=== PATIENT | female | born 1930 | race Caucasian/White ===

== ENCOUNTER 2020-09-20 08:41 | Inpatient (IN) | payer MEDICARE, OTHER ==
[~2020-09-20] VITALS: Ht 167.6 cm; Wt 54.5 kg
[2020-09-20] MEDS ORDERED: WARF1TAB2 PO (08:56)
[2020-09-20] MEDS ORDERED: TRIA1CAP6 PO (08:56)
[2020-09-20] MEDS ORDERED: DULO20CA PO (08:56)
[2020-09-20] MEDS ORDERED: FLUTICASONE (08:56)
[2020-09-20] MEDS ORDERED: BENA20TA9 PO (08:56)
[2020-09-20] MEDS ORDERED: DIGO125T PO (08:56)
[2020-09-20] MEDS ORDERED: PROP10TA10 PO (08:56)
[2020-09-20] MEDS ORDERED: SIMV-46 PO (08:56)
[2020-09-20] MEDS ORDERED: ATROVENT (08:56)
[2020-09-20] MEDS ORDERED: PULMICORT (08:56)
[2020-09-20] MEDS ORDERED: KLOR-CON (08:56)
[2020-09-20] MEDS ORDERED: TIOT18CA3 IH (08:56)
[2020-09-20] MEDS ORDERED: NITROGLYCERIN OINT 1 GM PACKET TP ONE ×2 (09:00→09:16)
[2020-09-20] MEDS ORDERED: METOPROLOL TARTRATE 5 MG/5 ML VIAL IVP ONE ×2 (09:00→09:16)
[2020-09-20 09:32] LABS: BASOPHILS % (AUTO) 0.4 % (0.0-2.0); EOSINOPHILS # (AUTO) 0.1 K/uL (0.0-0.7); HEMATOCRIT 36.3 % (31.2-41.9); HEMOGLOBIN 12.1 g/dL (10.9-14.3); LYMPHOCYTES # (AUTO) 0.4 K/uL (20.0-40.0); LYMPHOCYTES % (AUTO) 4.9 % (20.5-51.5); MEAN CORPUSCULAR HGB CONC 33 g/dL (32.3-35.6); MONOCYTES # (AUTO) 1.2 K/uL (2.0-10.0); MONOCYTES % (AUTO) 13.9 % (0.0-11.0); NEUTROPHILS # (AUTO) 6.8 K/uL (1.8-8.9); NEUTROPHILS % (AUTO) 79.8 % (38.5-71.5); PLATELET COUNT (AUTO) 140 K/uL (179-408); RED BLOOD CELL COUNT(AUTO) 3.78 MIL/uL (3.63-4.92); WHITE BLOOD COUNT (AUTO) 8.5 K/uL (3.8-11.8)
--- NOTE | 2020-09-20 09:43 | NUR ---
Patient is talking animatedly with her 2 caregivers, pending results and disposition, her respiration is easy but c/o shortness of breath with mild chest pains with inspiration
[2020-09-20 09:55] LABS: BILIRUBIN,DIRECT 0.3 mg/dL (0.0-0.2); BILIRUBIN,TOTAL 1.1 mg/dL (0.2-1.0); TOTAL PROTEIN, SERUM 6.4 g/dL (6.4-8.2)
[2020-09-20] MEDS ORDERED: MORPHINE SULFATE 2 MG/1 ML DISP.SYRIN IV PRN (10:45)
[2020-09-20] MEDS ORDERED: NITROGLYCERIN 0.4 MG/TAB BOTTLE SL PRN (10:45)
[2020-09-20] MEDS ORDERED: FUROSEMIDE 20 MG/2 ML VIAL IV SCH (10:45)
[2020-09-20] MEDS ORDERED: ONDANSETRON 4 MG/2 ML VIAL IV PRN (10:45)
--- NOTE | 2020-09-20 10:51 | NUR ---
Dr Braswell came & evaluated the patient in ER, pending admitting papers@the moment.
[2020-09-20] MEDS ORDERED: FUROSEMIDE 20 MG/2 ML VIAL ONE (11:20)
--- NOTE | 2020-09-20 11:59 | NUR ---
Afetr echocardiogram, patient voided to bathroom, ambulated with one-person assist.
--- NOTE | 2020-09-20 12:00 | NUR ---
ADMITTED VIA [facility]. ALERT & ORIENTED X3. WINNEBAGO EDITH. EARS. DAUGHTER & CAREGIVERS AT BEDSIDE.
[2020-09-20 12:49] VITALS: BP 121/56
[2020-09-20] MEDS ORDERED: WARF-68 PO (12:49)
[2020-09-20 15:11] VITALS: BP 130/53
[2020-09-20] MEDS: WARFARIN SODIUM 1 MG TABLET PO SCH (17:40)
[2020-09-20] MEDS: PROPRANOLOL HCL 10 MG TABLET PO SCH (19:46)
[2020-09-20] MEDS: SIMVASTATIN 20 MG TABLET PO SCH (19:46)
--- NOTE | 2020-09-20 20:00 | NUR ---
RECD PT IN BED,ALERT ,ORIENTED,ABLE TO MAKE NEEDS KNOWN,FORGETFULAT TIMES.NO ACUTE DISTRESS NOTED.O N TELE,[id number],FREQUENT PVC, AND OCCASIONAL PACED BEATS.DUE MEDS GIVEN,VOIDED FREELY WELL;
[2020-09-20 20:15] VITALS: BP 119/75
--- NOTE | 2020-09-21 | NUR ---
NO COMPLAINTS OF PAIN PRESENTED.KEPT WARM AND COMFORTABLE.ROLL ON MAN AT BEDSIDE.
[2020-09-21 01:00] VITALS: BP 107/47
[2020-09-21 04:15] VITALS: BP 118/64
[2020-09-21 06:40] LABS: BASOPHILS % (AUTO) 0.3 % (0.0-2.0); EOSINOPHILS # (AUTO) 0.1 K/uL (0.0-0.7); EOSINOPHILS % (AUTO) 1.9 % (0.0-7.0); HEMATOCRIT 34.1 % (31.2-41.9); HEMOGLOBIN 11.5 g/dL (10.9-14.3); LYMPHOCYTES # (AUTO) 0.6 K/uL (20.0-40.0); LYMPHOCYTES % (AUTO) 8.8 % (20.5-51.5); MEAN CORPUSCULAR HEMOGLOBIN 32.4 uug (24.7-32.8); MEAN CORPUSCULAR HGB CONC 34 g/dL (32.3-35.6); MEAN CORPUSCULAR VOLUME 96.1 fL (75.5-95.3); MONOCYTES # (AUTO) 1.1 K/uL (2.0-10.0); MONOCYTES % (AUTO) 16.8 % (0.0-11.0); NEUTROPHILS # (AUTO) 4.5 K/uL (1.8-8.9); NEUTROPHILS % (AUTO) 72.2 % (38.5-71.5); PLATELET COUNT (AUTO) 144 K/uL (179-408); RED BLOOD CELL COUNT(AUTO) 3.55 MIL/uL (3.63-4.92); WHITE BLOOD COUNT (AUTO) 6.3 K/uL (3.8-11.8)
[2020-09-21 06:59] LABS: CREATININE 0.9 mg/dL (0.6-1.3); MAGNESIUM 1.9 mg/dL (1.8-2.4); PHOSPHOROUS 3.1 mg/dL (2.5-4.9); POTASSIUM 3.8 mmol/L (3.5-5.1)
--- NOTE | 2020-09-21 07:48 | NUR ---
UNEVENTFUL NITE.ENDORSED TO AM SHIFT NURSE IN FAIR CONDITION.
[2020-09-21] MEDS ORDERED: BENAZEPRIL HCL 20 MG TABLET PO SCH (09:00)
[2020-09-21 09:11] LABS: EOSINOPHILS % (MANUAL) 1 % (0-8); LYMPHOCYTES % (MANUAL) 11 % (20-40); MONOCYTES % (MANUAL) 11 % (2-10); NEUTROPHILS % (MANUAL) 77 % (42-75)
[2020-09-21] MEDS: DULOXETINE 20 MG CAPSULE.DR PO SCH (09:11)
[2020-09-21] MEDS: FUROSEMIDE 20 MG/2 ML VIAL IV SCH ×2 (09:11→17:26)
[2020-09-21] MEDS: BENAZEPRIL HCL 10 MG TABLET PO SCH (09:12)
[2020-09-21] MEDS: PROPRANOLOL HCL 10 MG TABLET PO SCH ×3 (09:21→17:26)
[2020-09-21 11:47] VITALS: BP 123/53
[2020-09-21] MEDS: DIGOXIN 125 MCG TABLET PO SCH (13:38)
[2020-09-21] MEDS ORDERED: IPRA12.9 IH (14:43)
[2020-09-21] MEDS ORDERED: POTA-10 PO (14:47)
[2020-09-21] MEDS ORDERED: FLUT16SP16 NS (14:48)
[2020-09-21] MEDS ORDERED: BUDE180A IH (14:50)
[2020-09-21 15:22] VITALS: BP 121/57
[2020-09-21] MEDS ORDERED: FLUTICASONE PROP NASAL SPRAY 16 GM BOTTLE NS PRN (15:45)
[2020-09-21] MEDS ORDERED: PROPRANOLOL HCL 10 MG TABLET PO SCH (17:00)
--- NOTE | 2020-09-21 17:00 | NUR ---
DOING WELL TODAY. VISITED BY FAMILY. CAREGIVERS AT BEDSIDE ALL DAY.
[2020-09-21] MEDS: WARFARIN SODIUM 1 MG TABLET PO SCH (17:28)
[2020-09-21 20:21] VITALS: BP 128/51
[2020-09-21] MEDS: SIMVASTATIN 20 MG TABLET PO SCH (20:23)
[2020-09-22 04:21] VITALS: BP 117/54
--- NOTE | 2020-09-22 05:31 | NUR ---
Pt slept throughout the night with child care development specialist at bedside. Denies chest pain or SOB. Will titrate O2 to 1L and see how patient tolerates. Safety and comfort provided, call light within reach. No other issues or concerns at this time, will endorse to day shift.
[2020-09-22] MEDS: DULOXETINE 20 MG CAPSULE.DR PO SCH (08:20)
[2020-09-22] MEDS: POTASSIUM CHLORIDE 20 MEQ TAB.PRT.SR PO SCH (08:20)
[2020-09-22] MEDS: BENAZEPRIL HCL 10 MG TABLET PO SCH ×2 (08:20→09:00)
[2020-09-22] MEDS: TRIAMTERENE/HCTZ 75-50 MG TABLET PO SCH ×2 (08:20→09:33)
[2020-09-22] MEDS: PROPRANOLOL HCL 10 MG TABLET PO SCH ×4 (08:20→16:25)
[2020-09-22] MEDS: FUROSEMIDE 20 MG/2 ML VIAL IV SCH (08:22)
[2020-09-22] MEDS ORDERED: POTASSIUM CHLORIDE 20 MEQ PO SCH (09:00)
[2020-09-22] MEDS ORDERED: Medication Not On Formulary EA (Triamterene/Hydrochlorothiazid (Triamterene-Hctz 37.5-25 PO SCH (09:00)
[2020-09-22 11:32] VITALS: BP 124/58
[2020-09-22] MEDS: DIGOXIN 125 MCG TABLET PO SCH (12:05)
[2020-09-22] MEDS ORDERED: WARFARIN SODIUM 2 MG TABLET PO SCH ×2 (15:45→17:00)
[2020-09-22 16:00] VITALS: BP_SYST 104; BP_SYST 125; BP_SYST 90; BP_DIAS 46; BP_DIAS 55; BP_DIAS 56
[2020-09-22] MEDS ORDERED: WARFARIN SODIUM 1 MG TABLET PO ONE (17:00)
[2020-09-22 20:00] VITALS: BP 120/63
[2020-09-22] MEDS: SIMVASTATIN 20 MG TABLET PO SCH (20:57)
[2020-09-23] VITALS (7 sets, daily range): BP systolic 112–128; BP diastolic 42–91
--- NOTE | 2020-09-23 07:22 | NUR ---
RECD PT IN BED,ALERT ,ORIENTED,ABLE TO MAKE NEEDS KNOWN,FORGETFUL TIMES.NO ACUTE DISTRESS NOTED.O N TELE,A FIb 120 call light with in reach private respite care provider at bed side
[2020-09-23] MEDS ORDERED: WARFARIN SODIUM 2 MG TABLET PO ONE (08:15)
[2020-09-23] MEDS: DULOXETINE 20 MG CAPSULE.DR PO SCH (08:36)
[2020-09-23] MEDS: POTASSIUM CHLORIDE 20 MEQ TAB.PRT.SR PO SCH (08:36)
[2020-09-23] MEDS: METOPROLOL TARTRATE 25 MG TABLET PO SCH ×2 (08:44→20:10)
[2020-09-23] MEDS ORDERED: IV NORMAL SALINE 250 ML IV SCH (09:00)
[2020-09-23] MEDS ORDERED: IBUPROFEN 400 MG TABLET PO PRN (12:00)
[2020-09-23] MEDS: DIGOXIN 125 MCG TABLET PO SCH (12:31)
[2020-09-23] MEDS: WARFARIN SODIUM 1 MG TABLET PO SCH (16:19)
[2020-09-23] MEDS: ENSURE ENLIVE (VAN) 240 ML LIQUID PO SCH (17:58)
[2020-09-23] MEDS: SIMVASTATIN 20 MG TABLET PO SCH (20:10)
[2020-09-24 00:10] VITALS: BP 141/69
[2020-09-24 04:10] VITALS: BP 141/69
[2020-09-24 04:25] VITALS: BP 108/46
--- NOTE | 2020-09-24 05:36 | NUR ---
Pt slept throughout the night, 24 hour respiratory care specialist at bedside. Denies SOB or discomfort a this time. Requested morphine at beginning of shift for knee pain, tolerated well. Possible D/C today. No other issues or concerns at this time, will endorse to day shift.
[2020-09-24 06:46] LABS: BASOPHILS % (AUTO) 0.6 % (0.0-2.0); EOSINOPHILS # (AUTO) 0.1 K/uL (0.0-0.7); EOSINOPHILS % (AUTO) 1.8 % (0.0-7.0); HEMATOCRIT 33.4 % (31.2-41.9); HEMOGLOBIN 11.2 g/dL (10.9-14.3); LYMPHOCYTES # (AUTO) 0.8 K/uL (20.0-40.0); LYMPHOCYTES % (AUTO) 11.9 % (20.5-51.5); MEAN CORPUSCULAR HEMOGLOBIN 32.1 uug (24.7-32.8); MEAN CORPUSCULAR HGB CONC 34 g/dL (32.3-35.6); MONOCYTES # (AUTO) 1.3 K/uL (2.0-10.0); MONOCYTES % (AUTO) 18.8 % (0.0-11.0); NEUTROPHILS # (AUTO) 4.5 K/uL (1.8-8.9); NEUTROPHILS % (AUTO) 66.9 % (38.5-71.5); PLATELET COUNT (AUTO) 187 K/uL (179-408); RED BLOOD CELL COUNT(AUTO) 3.48 MIL/uL (3.63-4.92); WHITE BLOOD COUNT (AUTO) 6.7 K/uL (3.8-11.8)
--- NOTE | 2020-09-24 07:00 | NUR ---
received patient in bed sleeping. no signs of any pain, sob or discomfort noted at this time. caregiver at bedside. will continue to monitor.
[2020-09-24 07:22] LABS: MAGNESIUM 1.9 mg/dL (1.8-2.4); PHOSPHOROUS 3.3 mg/dL (2.5-4.9); POTASSIUM 3.9 mmol/L (3.5-5.1)
[2020-09-24 07:35] VITALS: BP 108/45
[2020-09-24] MEDS: DULOXETINE 20 MG CAPSULE.DR PO SCH (08:36)
[2020-09-24] MEDS: POTASSIUM CHLORIDE 20 MEQ TAB.PRT.SR PO SCH (08:36)
[2020-09-24] MEDS: METOPROLOL TARTRATE 25 MG TABLET PO SCH (08:37)
[2020-09-24] MEDS: ENSURE ENLIVE (VAN) 240 ML LIQUID PO SCH (08:38)
[2020-09-24 10:00] VITALS: BP_SYST 109; BP_SYST 115; BP_SYST 98; BP_DIAS 40; BP_DIAS 41; BP_DIAS 52
[2020-09-24] MEDS ORDERED: WARFARIN SODIUM 2 MG TABLET PO ONE (10:00)
[2020-09-24] MEDS ORDERED: POTA10CA43 PO (11:44)
[2020-09-24] MEDS ORDERED: METO25TA6 PO (11:44)
[2020-09-24 11:51] VITALS: BP 115/64
[2020-09-24] MEDS: DIGOXIN 125 MCG TABLET PO SCH (12:33)
[2020-09-24 12:43] LABS: EOSINOPHILS % (MANUAL) 2 % (0-8); LYMPHOCYTES % (MANUAL) 12 % (20-40); MONOCYTES % (MANUAL) 16 % (2-10); NEUTROPHILS % (MANUAL) 70 % (42-75)
--- NOTE | 2020-09-24 12:57 | NUR ---
patient discharge orders carried out, patient in stable condition, patient going home with workforce investment act career manager melinda.
--- NOTE | 2020-09-24 13:50 | NUR ---
patient discharged to home at this time via private care with Isaac freedman.
== END 2020-09-24 13:50 | disposition home or self-care (01) | DRG 280 ==
LOC: ER 08:41 → TELE3 10:57
PROVIDERS: ADMIT Internal Medicine; ATTEND Nurse Practitioner Acute Care
DX: I25.10 Atherosclerotic heart disease of native coronary artery without angina pectoris (principal); I21.4 Non-ST elevation (NSTEMI) myocardial infarction; I50.33 Acute on chronic diastolic (congestive) heart failure; I48.20 Chronic atrial fibrillation, unspecified; D68.59 Other primary thrombophilia; I11.0 Hypertensive heart disease with heart failure; E78.5 Hyperlipidemia, unspecified; E86.0 Dehydration; Z79.01 Long term (current) use of anticoagulants; M17.11 Unilateral primary osteoarthritis, right knee; J44.9 Chronic obstructive pulmonary disease, unspecified; Z95.2 Presence of prosthetic heart valve; H91.90 Unspecified hearing loss, unspecified ear; I35.1 Nonrheumatic aortic (valve) insufficiency; Z20.822 Contact with and (suspected) exposure to COVID-19
CPT/HCPCS: 36415; 70030-TC; 71045; 73562; 83605; 83735; 84100; 85025; 85610; 85730; 87040; 93005; 93307; A4663; G0378; J1940; J3490; J3535; J7050

== ENCOUNTER 2021-08-02 10:01 | Inpatient (IN) | payer MEDICARE ==
[~2021-08-02] VITALS: Ht 162.6 cm; Wt 51.7 kg
[~2021-08-02 10:01] MED LIST: BUDE180A IH; DIGO125T PO; DULO20CA PO; FLUT16SP16 NS; IPRA12.9 IH; METO25TA6 PO; POTA10CA43 PO; SIMV-46 PO; TIOT18CA3 IH; WARF-68 PO; WARF1TAB2 PO
--- NOTE | 2021-08-02 10:04 | NUR ---
PATIENT BROUGHT IN BY RESCUE ALTERED. FAMILY STATES CONCERNED FOR UTI. WAITING IN ROOM 3A. PATIENT WAITING TO BE SEEN BY DOCTOR.
--- NOTE | 2021-08-02 10:20 | NUR ---
PATIENT UNABLE TO ANSWER SOME QUESTIONS DUE TO HARD OF HEARING.
[2021-08-02 10:48] LABS: HEMATOCRIT 38.9 % (31.2-41.9); MEAN CORPUSCULAR HEMOGLOBIN 30.6 uug (24.7-32.8); MEAN CORPUSCULAR VOLUME 92.1 fL (75.5-95.3); PLATELET COUNT (AUTO) 203 K/uL (179-408)
[2021-08-02 10:56] LABS: CARBON DIOXIDE 28 mmol/L (21-32); CHLORIDE 100 mmol/L (98-107); GLUCOSE 172 mg/dL (74-106); POTASSIUM 3.7 mmol/L (3.5-5.1); UREA NITROGEN, BLOOD 20 mg/dL (7-18)
[2021-08-02 11:05] LABS: ALANINE AMINOTRANSFERASE 27 U/L (14-59); ALKALINE PHOSPHATASE 131 U/L (50-136); ASPARTATE AMINOTRANSFERASE 22 U/L (15-37); BILIRUBIN,DIRECT 0.2 mg/dL (0.0-0.2); BILIRUBIN,TOTAL 0.8 mg/dL (0.2-1.0); TOTAL PROTEIN, SERUM 7.3 g/dL (6.4-8.2)
[2021-08-02 11:10] LABS: THYROID STIMULATING HORMONE 2.143 mIU/mL (0.358-3.740)
[2021-08-02 11:11] LABS: *BILIRUBIN,URIN NEGATIVE (NEGATIVE); *BLOOD, URINE TRACE (NEGATIVE); *CLARITY,URINE CLEAR (CLEAR); *COLOR,URINE YELLOW (YELLOW); *KETONES,URINE NEGATIVE (NEGATIVE); *UROBILINOGEN,URINE 0.2 E.U./dl (NORMAL); LEUKOCYTE ESTERASE ,URINE TRACE (NEGATIVE); NITRITE, URINE POSITIVE (NEGATIVE); UGLUCOSE NEGATIVE (NEGATIVE)
--- NOTE | 2021-08-02 11:11 | NUR ---
daughter at bedside.
[2021-08-02] MEDS ORDERED: IV NORMAL SALINE 1000 ML BAG IV ONE (11:15)
[2021-08-02] MEDS ORDERED: ASPIRIN 81 MG TAB.CHEW PO ONE (11:30)
[2021-08-02] MEDS ORDERED: MEROPENEM 500 MG in IV NORMAL SALINE 100 ML IV ONE (11:30)
[2021-08-02] MEDS ORDERED: ASPIRIN 81 MG TAB.CHEW ONE (11:33)
[2021-08-02] MEDS ORDERED: MEROPENEM 500MG/NS 50ML PB ***ER PYXIS ONLY IV ONE (11:33)
--- NOTE | 2021-08-02 12:15 | NUR ---
patient brought in with skin sore at buttocks noted
--- NOTE | 2021-08-02 12:15 | NUR ---
patient had x1 BM and 2nd urinary output
[2021-08-02] MEDS ORDERED: FURO-152 PO (12:29)
[2021-08-02] MEDS ORDERED: WARF-68 PO ×2 (12:29)
[2021-08-02] MEDS ORDERED: BENA20TA9 PO (12:29)
[2021-08-02] MEDS ORDERED: METO50TA16 PO (12:29)
[2021-08-02 12:48] LABS: BACTERIA,URINE FEW /HPF (NONE SEEN); RBC,URINE 0-3 /HPF (0-3); SQUAMOUS EPITHELIAL CELL,UR FEW /HPF (NONE SEEN)
--- NOTE | 2021-08-02 12:57 | NUR ---
critical trop called in by lab informed Dr sanchez. trop level 172
[2021-08-02] MEDS ORDERED: HOME MED MISCELLANEOUS XX SCH ×2 (13:45)
[2021-08-02] MEDS ORDERED: MEROPENEM 500 MG in IV NORMAL SALINE 50 ML IV SCH ×2 (14:00→14:15)
[2021-08-02] MEDS ORDERED: ACETAMINOPHEN 325 MG TABLET PO PRN (14:00)
[2021-08-02] MEDS ORDERED: MORPHINE SULFATE 2 MG/1 ML DISP.SYRIN IV PRN ×2 (14:00→14:15)
[2021-08-02] MEDS ORDERED: ONDANSETRON 4 MG/2 ML VIAL IV PRN ×2 (14:00→14:15)
[2021-08-02] MEDS ORDERED: MAGNESIUM HYDROXIDE 30 ML LIQUID UDC PO PRN (14:00)
[2021-08-02] MEDS ORDERED: REMEDY ESSENTIAL ZINC PASTE 113 GM TP PRN ×2 (14:00→14:15)
--- NOTE | 2021-08-02 14:30 | NUR ---
received from ER per ashely awake alert but confused accompanied by daughter Sharla and CG, on roomair, placed on tele afib controlled wisth paced beats, routine admission care provided, initial assessment done. explained plan of care- verbalized understanding, safety measures initiated, pt incontinent of urine- washed and kept clean and dry, heels off loaded with pillows
[2021-08-02] MEDS ORDERED: MEROPENEM 1 G in IV NORMAL SALINE 100 ML IV SCH (15:00)
[2021-08-02 15:30] VITALS: BP 152/67
--- NOTE | 2021-08-02 16:00 | NUR ---
Dr Whitman here and saw pt- spoke to family and orders given
--- NOTE | 2021-08-02 16:30 | NUR ---
pt's daughter Qiana states pt is DNR and has a advance directive but doesn't have with her- states will provide copy, also spoke to Wolfganganother daughter and wants to be referred to [facility] for hospice care
[2021-08-02] MEDS ORDERED: METOPROLOL TARTRATE 50 MG TABLET PO SCH ×2 (17:00)
[2021-08-02] MEDS ORDERED: WARFARIN SODIUM 2 MG TABLET PO SCH (17:00)
[2021-08-02] MEDS ORDERED: SIMVASTATIN 20 MG TABLET PO SCH (18:00)
[2021-08-02] MEDS ORDERED: DULOXETINE 20 MG CAPSULE.DR PO SCH (18:00)
--- NOTE | 2021-08-02 19:00 | NUR ---
Received pt awake, alert and orientedx2.Pt needs reorientation. Pt in no acute distress. Iv intact. Caregiver at bedside. Safety and comfort provided. Will continue to monitor.
[2021-08-02] MEDS: BUDESONIDE 0.5 MG/2 ML NEBU NEB SCH (19:30)
[2021-08-02] MEDS: IPRATROPIUM BROMIDE 0.5 MG/2.5 ML NEBU NEB SCH (19:30)
[2021-08-02 20:03] VITALS: BP 127/55
[2021-08-02] MEDS: METOPROLOL TARTRATE 50 MG TABLET PO SCH (21:12)
[2021-08-02] MEDS: SIMVASTATIN 20 MG TABLET PO SCH (21:12)
[2021-08-02] MEDS: DULOXETINE 20 MG CAPSULE.DR PO SCH (21:12)
[2021-08-02] MEDS: ENOXAPARIN SODIUM 60 MG/0.6 ML DISP.SYRIN SQ SCH (21:13)
[2021-08-02] MEDS: MEROPENEM 1 G in IV NORMAL SALINE 100 ML IV SCH (23:27)
[2021-08-03] VITALS: BP 147/61
[2021-08-03 04:03] VITALS: BP 148/55
[2021-08-03] MEDS: PANTOPRAZOLE SODIUM 40 MG TABLET.DR PO SCH (06:12)
--- NOTE | 2021-08-03 06:24 | NUR ---
PT Mrsa specimen given to lab. Pt on controlled afib with pvs. Will continue to monitor.
--- NOTE | 2021-08-03 06:24 | NUR ---
Pt slept intermittently. Pt in no acute distress. Pt had slurred speech. Caregiver at bedside for safety. Pt trying to get out of the bed. Pt needs reorientation. Prescribed medication given and pt tolerated it well. Safety and comfort provided. Will continue to monitor.
[2021-08-03 06:49] LABS: HEMATOCRIT 36.6 % (31.2-41.9); MEAN CORPUSCULAR HEMOGLOBIN 30.7 uug (24.7-32.8); MEAN CORPUSCULAR VOLUME 90.5 fL (75.5-95.3); PLATELET COUNT (AUTO) 173 K/uL (179-408)
[2021-08-03] MEDS ORDERED: PANTOPRAZOLE SODIUM 40 MG TABLET.DR PO SCH (07:00)
[2021-08-03 07:13] LABS: CREATININE 0.9 mg/dL (0.6-1.3); MAGNESIUM 1.5 mg/dL (1.8-2.4); PHOSPHOROUS 3.2 mg/dL (2.5-4.9); POTASSIUM 3.4 mmol/L (3.5-5.1)
--- NOTE | 2021-08-03 07:49 | NUR ---
Received awake in bed, cg at bedside. Patient has heard of hearing, slurred speech, confused. No resp distress noted. Rt giving breathing treatments. No ss of pain noted. Safety measures in place. Needs attended. controlled afib with some pvc on telemonitor.
[2021-08-03] MEDS: IPRATROPIUM BROMIDE 0.5 MG/2.5 ML NEBU NEB SCH ×3 (08:00→19:36)
[2021-08-03] MEDS: BUDESONIDE 0.5 MG/2 ML NEBU NEB SCH ×2 (08:00→19:36)
[2021-08-03] MEDS: METOPROLOL TARTRATE 50 MG TABLET PO SCH ×2 (08:52→20:37)
[2021-08-03] MEDS: FUROSEMIDE 20 MG TABLET PO SCH (08:53)
[2021-08-03] MEDS: DIGOXIN 125 MCG TABLET PO SCH (08:53)
[2021-08-03] MEDS: ENOXAPARIN SODIUM 60 MG/0.6 ML DISP.SYRIN SQ SCH ×2 (08:54→20:38)
[2021-08-03] MEDS ORDERED: FUROSEMIDE 20 MG TABLET PO SCH (09:00)
[2021-08-03] MEDS ORDERED: WARFARIN SODIUM 2 MG TABLET PO SCH (09:00)
[2021-08-03] MEDS ORDERED: BUDESONIDE INH SCH ×2 (09:00)
[2021-08-03] MEDS ORDERED: BENAZEPRIL HCL 5 MG TABLET PO SCH (09:00)
[2021-08-03] MEDS ORDERED: DIGOXIN 125 MCG TABLET PO SCH (09:00)
[2021-08-03] MEDS ORDERED: BENAZEPRIL HCL 20 MG TABLET PO SCH (09:00)
[2021-08-03] MEDS ORDERED: [UNRECOGNIZED DRUG - OTHER] INH SCH ×2 (09:00)
[2021-08-03] MEDS ORDERED: POTASSIUM CHLORIDE 10 MEQ TAB.PRT.SR PO SCH ×2 (09:00)
[2021-08-03] MEDS ORDERED: [UNRECOGNIZED DRUG - OTHER] INH SCH ×2 (09:00)
[2021-08-03 09:21] LABS: ABG BASE EXCESS 3.8 mmol/L; ABG HCO3 26.2 mmol/L; ABG PCO2 32.4 mmHg (35.0-45.0); ABG PH 7.525 (7.350-7.450); ABG PO2 63.2 mmHg (75.0-100.0); ABG SITE RIGHT RADIAL; ABG TOTAL HEMOGLOBIN 12.8 G/dL (12.0-16.0); COHb 0.6 % (0.5-1.5); MetHb 0.3 % (0.0-1.5); O2Hb 92.7 % (94.0-97.0); VENT MODE ROOM AIR
--- NOTE | 2021-08-03 09:24 | NUR ---
seen and examined by dr. ruiz no new orders received.
--- NOTE | 2021-08-03 10:30 | NUR ---
RAC iv access infiltrated and removed promptly with minimal bleeding. Reinserted LFA IV access tolerated. Pt with very fragile skin and restless.
[2021-08-03] MEDS: MAGNESIUM SULFATE/D5W 100 ML IV SCH ×2 (10:45→11:56)
[2021-08-03 11:51] VITALS: BP 121/72
[2021-08-03] MEDS: MEROPENEM 1 G in IV NORMAL SALINE 100 ML IV SCH (13:28)
--- NOTE | 2021-08-03 14:38 | NUR ---
PT,OT order is in, spoke to aliyah and made aware about PT, OT order, per aliyah, will evaluate her tomorrow, per daughter right leg weight bearing is 50% because of old femur fracture
--- NOTE | 2021-08-03 14:44 | NUR ---
hospice nurse was here to evaluate the patient from hospice company, per hospice nurse, family refused hospice for now.
[2021-08-03 16:21] VITALS: BP 132/58
--- NOTE | 2021-08-03 19:01 | NUR ---
patient resting. restless earlier trying to get out of bed throughout the day. caregiver at bedside for safety. no acute distress. fall precautions observed at all times. safety measures in place. kept comfortable.
--- NOTE | 2021-08-03 19:30 | NUR ---
Received pt awake, alert and orientedx2. Pt on room air.Caregiver at bedside. Pt on controlled afib with pvc. Pt in no acute distress. Iv intact. Safety and comfort provided. Pt on sinus rhythm.Will continue to monitor.
[2021-08-03 20:03] VITALS: BP 123/71
[2021-08-03] MEDS: DULOXETINE 20 MG CAPSULE.DR PO SCH (20:36)
[2021-08-03] MEDS: SIMVASTATIN 20 MG TABLET PO SCH (20:37)
[2021-08-04] VITALS: BP 131/81
[2021-08-04 04:03] VITALS: BP 145/53
[2021-08-04] MEDS ORDERED: CEFTRIAXONE 1 G in IV DEXTROSE 5% 50 ML IV SCH (06:00)
--- NOTE | 2021-08-04 06:30 | NUR ---
Pt in no acute distress. Prescribed medication given and pt tolerated it well. Pt on sinus rhythm .Caregiver at bedside for safety. Pt had slurred speech. Pt Iv intact. Pt turned and repositioned. Safety and comfort provided. All needs are met. Will endorse to incoming nurse for continuity of care.
[2021-08-04] MEDS: PANTOPRAZOLE SODIUM 40 MG TABLET.DR PO SCH (06:39)
[2021-08-04 06:48] LABS: HEMATOCRIT 35.4 % (31.2-41.9); MEAN CORPUSCULAR HEMOGLOBIN 31.3 uug (24.7-32.8); MEAN CORPUSCULAR VOLUME 93.9 fL (75.5-95.3); PLATELET COUNT (AUTO) 169 K/uL (179-408)
[2021-08-04 07:03] LABS: CREATININE 0.8 mg/dL (0.6-1.3); POTASSIUM 3.5 mmol/L (3.5-5.1)
[2021-08-04 07:09] LABS: MAGNESIUM 2.1 mg/dL (1.8-2.4); PHOSPHOROUS 3.2 mg/dL (2.5-4.9)
[2021-08-04] MEDS: BUDESONIDE 0.5 MG/2 ML NEBU NEB SCH ×4 (07:30→19:54)
[2021-08-04] MEDS: IPRATROPIUM BROMIDE 0.5 MG/2.5 ML NEBU NEB SCH ×3 (07:33→19:01)
[2021-08-04] MEDS: DIGOXIN 125 MCG TABLET PO SCH (08:40)
[2021-08-04] MEDS: METOPROLOL TARTRATE 50 MG TABLET PO SCH ×2 (08:40→21:56)
[2021-08-04] MEDS: ENOXAPARIN SODIUM 60 MG/0.6 ML DISP.SYRIN SQ SCH ×2 (08:47→22:09)
--- NOTE | 2021-08-04 11:47 | NUR ---
WOUND CARE CONSULT: PT PRESENTS VERY THIN AND BONY WITH FRAGILE SKIN, SCARRING TO RT ELBOW, AREAS OF SKIN DISCOLORATION AND MIDBACK INTACT DEEP TISSUE INJURY WITH DRY LESION/PEELING SKIN, ALL PRESENT ON ADMISSION. RECOMMENDATIONS MADE FOR SKIN PROTECTION. DISCUSSED WITH NURSING STAFF. PT IS ON FIRST STEP JENNIFER SOTELO. IN AGREEMENT WITH PLAN OF CARE. Addendum: 08/04/21 at 1149 by SHEKHAR CABRERA RN Amended: Links added.
[2021-08-04 11:58] VITALS: BP 134/50
[2021-08-04 16:00] VITALS: BP 117/41
[2021-08-04] MEDS ORDERED: WARFARIN SODIUM 4 MG TABLET PO ONE (17:00)
[2021-08-04] MEDS ORDERED: WARFARIN SODIUM 2 MG TABLET PO ONE (17:00)
[2021-08-04] MEDS ORDERED: WARFARIN SODIUM 1 MG TABLET PO SCH (17:00)
--- NOTE | 2021-08-04 19:37 | NUR ---
RESPIRATORY PROGRESS NOTE: PT RECEIVED ON ROOM AIR, NO SOB NOTED. HHN TREATMENT ORDERS REVIEWED. ATROVENT TREATMENT ADMINISTERED AND TOLERATED WELL, NO ADVERSE REACTIONS NOTED. PULMICORT MEDICATION UNAVAILABLE. PHARMACY CONTACTED. WILL CONTINUE TO MONITOR.
--- NOTE | 2021-08-04 20:40 | NUR ---
Patient awake but with confusion, no sob no chest pain, tele monitor sinus rhythm, sinus tachy, no s/s of pain nor discomfort, private sitter at bedside, rendered total assist with adl's, cont to monitor.
[2021-08-04 20:52] VITALS: BP 141/67
[2021-08-04] MEDS: SIMVASTATIN 20 MG TABLET PO SCH (21:55)
[2021-08-04] MEDS: DULOXETINE 20 MG CAPSULE.DR PO SCH (21:55)
[2021-08-05 00:08] VITALS: BP 128/79
[2021-08-05 04:00] VITALS: BP 115/36
[2021-08-05] MEDS: ACETAMINOPHEN 325 MG TABLET PO PRN ×2 (06:11→21:02)
[2021-08-05] MEDS: PANTOPRAZOLE SODIUM 40 MG TABLET.DR PO SCH (06:11)
--- NOTE | 2021-08-05 06:33 | NUR ---
Patient asleep but arousable, had facial grimacy, given tylenol po crush tolerate well, tele monitor sinus rhythm sinus tachy, turn and reposition, voided twice this shift at this time, cont to monitor.
[2021-08-05 06:55] LABS: HEMATOCRIT 30.6 % (31.2-41.9); MEAN CORPUSCULAR HEMOGLOBIN 31.3 uug (24.7-32.8); MEAN CORPUSCULAR VOLUME 91.6 fL (75.5-95.3); PLATELET COUNT (AUTO) 137 K/uL (179-408)
[2021-08-05] MEDS: IPRATROPIUM BROMIDE 0.5 MG/2.5 ML NEBU NEB SCH ×3 (07:23→20:52)
[2021-08-05] MEDS: BUDESONIDE 0.5 MG/2 ML NEBU NEB SCH ×2 (07:23→20:53)
[2021-08-05 07:30] LABS: NEUTROPHILS % (MANUAL) 0 % (42-75)
[2021-08-05] MEDS: METOPROLOL TARTRATE 50 MG TABLET PO SCH ×2 (08:30→20:28)
[2021-08-05] MEDS: FUROSEMIDE 20 MG TABLET PO SCH (08:30)
[2021-08-05] MEDS: DIGOXIN 125 MCG TABLET PO SCH (08:30)
[2021-08-05] MEDS: ENOXAPARIN SODIUM 60 MG/0.6 ML DISP.SYRIN SQ SCH ×2 (09:00→20:53)
[2021-08-05] MEDS: POTASSIUM CHLORIDE 50 ML IV SCH ×4 (09:30→12:42)
[2021-08-05 12:00] VITALS: BP 118/32
[2021-08-05 13:00] VITALS: BP 112/31
[2021-08-05 16:00] VITALS: BP 112/31
[2021-08-05] MEDS ORDERED: WARFARIN SODIUM 4 MG TABLET PO ONE (17:00)
--- NOTE | 2021-08-05 19:30 | NUR ---
RECEIVED PT AWAKE, ALERT AND ORIENTEDX2.CAREGIVER AT BEDSIDE . PT IN NO ACUTE DISTRESS. IV INTACT. SAFETY AND COMFORT PROVIDED. WILL CONTINUE TO MONITOR.
[2021-08-05 20:10] VITALS: BP 121/71
[2021-08-05] MEDS: SIMVASTATIN 20 MG TABLET PO SCH (20:28)
[2021-08-05] MEDS: DULOXETINE 20 MG CAPSULE.DR PO SCH (20:28)
--- NOTE | 2021-08-05 21:02 | NUR ---
TYLENOL 650 MG PRN GIVEN AT 2102h FOR PAIN. PT TOLERATED IT WELL. WILL CONTINUE TO MONITOR.
[2021-08-06 04:00] VITALS: BP 116/48
--- NOTE | 2021-08-06 06:26 | NUR ---
Pt slept intermittently. Pt in no acute distress. Pt turned and repositioned. Caregiver at bedside for safety. Prescribed medication given and pt tolerated it well.Vital signs wnl. Safety and comfort provided. All needs are met. Will endorse to incoming nurse for continuity of care.
[2021-08-06] MEDS: PANTOPRAZOLE SODIUM 40 MG TABLET.DR PO SCH (06:31)
[2021-08-06] MEDS: IPRATROPIUM BROMIDE 0.5 MG/2.5 ML NEBU NEB SCH (07:10)
[2021-08-06] MEDS: BUDESONIDE 0.5 MG/2 ML NEBU NEB SCH (07:10)
[2021-08-06 07:36] LABS: HEMATOCRIT 30.3 % (31.2-41.9); MEAN CORPUSCULAR HEMOGLOBIN 31.4 uug (24.7-32.8); MEAN CORPUSCULAR VOLUME 92.5 fL (75.5-95.3); PLATELET COUNT (AUTO) 142 K/uL (179-408)
[2021-08-06 07:48] LABS: CREATININE 0.8 mg/dL (0.6-1.3); MAGNESIUM 2.1 mg/dL (1.8-2.4); PHOSPHOROUS 2.5 mg/dL (2.5-4.9); POTASSIUM 3.5 mmol/L (3.5-5.1)
[2021-08-06] MEDS: ACETAMINOPHEN 325 MG TABLET PO PRN (08:33)
[2021-08-06 08:39] VITALS: BP 124/54
[2021-08-06] MEDS: DIGOXIN 125 MCG TABLET PO SCH (08:39)
[2021-08-06] MEDS: METOPROLOL TARTRATE 50 MG TABLET PO SCH (08:39)
[2021-08-06] MEDS ORDERED: WARF1TAB2 PO (09:56)
--- NOTE | 2021-08-06 12:24 | NUR ---
Patient discharged from unit at 1220. IV site removed. ID [email or web address] removed. Discharge education provided.
[2021-08-06] MEDS ORDERED: WARFARIN SODIUM 2 MG TABLET PO SCH (17:00)
[2021-08-06] MEDS ORDERED: COUMADIN VARIABLE DOSE REMINDE XX SCH (17:00)
== END 2021-08-06 12:25 | disposition hospice, home (50) | DRG 64 ==
LOC: ER 10:02 → TELE3 14:12 → MEDSURG3 08-05 10:05
PROVIDERS: ADMIT Nurse Practitioner Acute Care; ATTEND Nurse Practitioner Family
PROC: 05H533Z Insertion of Infusion Device into Right Subclavian Vein, Percutaneous Approach (ICD-10-PCS; principal; 2021-08-04)
PROC: B546ZZA Ultrasonography of Right Subclavian Vein, Guidance (ICD-10-PCS; 2021-08-04)
DX: I63.9 Cerebral infarction, unspecified (principal); I50.33 Acute on chronic diastolic (congestive) heart failure; I21.A1 Myocardial infarction type 2; G93.49 Other encephalopathy; N39.0 Urinary tract infection, site not specified; E46 Unspecified protein-calorie malnutrition; E87.2 Acidosis; I48.20 Chronic atrial fibrillation, unspecified; R64 Cachexia; J90 Pleural effusion, not elsewhere classified; J98.11 Atelectasis; Z68.1 Body mass index [BMI] 19.9 or less, adult; I11.0 Hypertensive heart disease with heart failure; B96.89 Other specified bacterial agents as the cause of diseases classified elsewhere; E78.5 Hyperlipidemia, unspecified; F03.90 Unspecified dementia, unspecified severity, without behavioral disturbance, psychotic disturbance, mood disturbance, and anxiety; F32.A Depression, unspecified; H91.90 Unspecified hearing loss, unspecified ear; I25.10 Atherosclerotic heart disease of native coronary artery without angina pectoris; Z20.822 Contact with and (suspected) exposure to COVID-19; Z79.01 Long term (current) use of anticoagulants; Z86.73 Personal history of transient ischemic attack (TIA), and cerebral infarction without residual deficits; Z95.2 Presence of prosthetic heart valve; Z82.49 Family history of ischemic heart disease and other diseases of the circulatory system; Z88.0 Allergy status to penicillin; Z95.0 Presence of cardiac pacemaker; M62.50 Muscle wasting and atrophy, not elsewhere classified, unspecified site; Z96.641 Presence of right artificial hip joint; B96.5 Pseudomonas (aeruginosa) (mallei) (pseudomallei) as the cause of diseases classified elsewhere; J45.909 Unspecified asthma, uncomplicated; R47.01 Aphasia
CPT/HCPCS: 36415; 36600; 70030-TC; 70450; 71045; 76604; 82785; 83605; 83735; 84100; 84443; 84484; 85025; 85610; 85730; 86140; 87040; 87077; 87086; 93005; 93307; 94640; 97161; A4663; A6209; C1758; G0378; J0696; J1650; J2185; J3475; J3480; J3590; J7040